=== PATIENT | male | born 2000 | race African-American/Black ===

== ENCOUNTER → 2022-06-30 | Outpatient (CLI) | payer OTHER | END | disposition home or self-care (01) | LOC: LAB SHORT 19:04 | DX: L98.9 Disorder of the skin and subcutaneous tissue, unspecified (principal) | CPT/HCPCS: 87070; 87077; 87186; 87205 ==

== ENCOUNTER 2022-12-19 09:49 | Emergency (ER) | payer OTHER ==
[~2022-12-19] VITALS: Ht 182.9 cm; Wt 82.5 kg
[2022-12-19 10:41] VITALS: BP 128/76
== END 2022-12-19 11:51 | disposition home or self-care (01) ==
LOC: ER 09:49
DX: R04.0 Epistaxis (principal); R04.2 Hemoptysis; Z88.0 Allergy status to penicillin
CPT/HCPCS: 99283